=== PATIENT | female | born 1955 | race Caucasian/White ===

== ENCOUNTER 2020-04-30 06:23 | Day surgery (SDC) | payer OTHER ==
[~2020-04-30] VITALS: Ht 165.1 cm; Wt 84.2 kg
[~2020-04-30 06:23] MED LIST: ASPI81CH; CARV6.25; CHOL10002; Desyrel50 MG; LEVSOD88; Prilosec Otc20 MG
[2020-04-30] MEDS ORDERED: OXYB5 PO (06:46)
--- NOTE | 2020-04-30 08:48 | NUR ---
04/30/20 0848 Celine King OXYGEN SATURATIONS 90-91% ON ROOM AIR. PLACED ON 2L OXYGEN VIA NC. SATURATIONS 93-94% AT THIS TIME ON OXYGEN.
== END 2020-04-30 09:22 | disposition home or self-care (01) ==
LOC: ORSCSDS 06:23
PROVIDERS: Orthopaedic Surgery
PROC: 0LN80ZZ Release Left Hand Tendon, Open Approach (ICD-10-PCS; principal; 2020-04-30 07:30)
PROC: 0JNK0ZZ Release Left Hand Subcutaneous Tissue and Fascia, Open Approach (ICD-10-PCS; principal; 2020-04-30 07:30)
DX: M72.0 Palmar fascial fibromatosis [Dupuytren] (principal); I10 Essential (primary) hypertension; Z87.891 Personal history of nicotine dependence; Z79.899 Other long term (current) drug therapy
CPT/HCPCS: 88304; J0690; J1100; J1885; J2250; J2405; J2704; J3010; J7120